=== PATIENT | female | born 1975 | race Caucasian/White ===

== ENCOUNTER 2025-08-17 03:50 | Emergency (ER) | payer MEDICAID, SELFPAY ==
[2025-08-17 03:50] VITALS: BMI 26.6
--- NOTE | 2025-08-17 03:58 | XR_ITS ---
EXAMINATION: AP chest single view TECHNIQUE: AP portable upright chest single view Date and time: August 17, 2025, 0415 hours INDICATIONS: Sepsis protocol FINDINGS: Mild prominence left ventricle Significant vascular congestion. No levi lobar pneumonia. Moderate osteopenia IMPRESSION: Prominent vascular congestion No lobar pneumonia
--- NOTE | 2025-08-17 03:58 | EKG_ITS ---
[facility] Test Date: 2025-08-17 Pat Name: DAMON LEYVA Department: Room: - Gender: Female Cheese Maker: : 1975 Requested By: Nelson Kohler Order Number: [id number] Reading MD: Nelson Kohler Measurements Intervals [place] Rate: 98 P: 69 AR: 116 QRS: 39 QRSD: 98 T: 45 QT: 333 QTc: 427 Interpretive Statements SINUS RHYTHM WITH SHORT AR INTERVAL No previous ECG available for comparison /store/S0/[id number]/ecg/[id number].pdf
[2025-08-17 03:59] VITALS: BP 178/94; PULSE 106; RESP 22; TEMP 38.1; O2SAT 100
[2025-08-17 04:05] VITALS: PULSE 89; RESP 18; RESP 96
[2025-08-17 04:10] LABS: Collection Type, Urine Clean Catch
--- NOTE | 2025-08-17 04:18 | EDNOTE_ITS ---
ED Female Urogenital RME/HPI General Chief complaint: Abdominal Pain Stated complaint: BILATERAL FLANK PAIN/FEVER Time Seen by Provider: 08/17/25 03:54 Arrival date/time: 08/17/25 03:50 RME / HPI RME / HPI Narrative: DR. HANSEN MAIN ED EVALUATION: Patient presenting with sudden onset fever, chills, vaguely described back pain x approximately 24 hours. Noticed malodorous urine, although denies urinary frequency, urgency, or dysuria. No vomiting or diarrhea. PMH: Unremakrable for DM and Asthma, Positive MRSA PSH: Non-contributory Allergies: Codeine Social: No tobacco, No alcohol, Prior Heroin abuse Related Data Home Medications ?Medication ?Instructions ?Recorded ?Confirmed methadone 10 mg/5 mL oral solution 5 mg PO Q6H 9 08/19/19 Allergies Allergy/AdvReac Type Severity Reaction Status Date / Time codeine Allergy Mild RED Verified 12/07/18 13:34 RASH,NAUSEA Review of Systems Review of Systems Systems Reviewed: All systems reviewed, normal except as documented Past Medical History Past Medical History PSYCHO/SOCIAL: Positive Recreational Drug Use OTHER HISTORY: Positive MRSA Social History SMOKING STATUS: Current some day smoker SUBSTANCE USE: former substance user (former IV heroin user) ED Exam Narrative Physical exam: GEN. APPEARANCE: The patient is alert awake oriented X-3 under no distress, lying down comfortably, notably febrile, tachycardic, and mildly hypertensive. Patient has good eye contact. Patient is cooperative. VITALS: All vitals were reviewed and the pulse ox is 100%, which is normal according to my interpretation HEENT: Normocephalic, atraumatic and nontender. Pupils are equal and reactive. Oral mucosa is moist. NECK: Supple, nontender, no meningismus, no JVD. There is no thyromegaly and no lymphadenopathy. CHEST: Nontender on palpation no deformity and no crepitus. CARDIOVASCULAR: Tachycardic, no murmur or gallop rub or extra beats. LUNGS: Clear to auscultation bilaterally with symmetrical chest rise. No laboring tachypnea or wheezing. No intercostal subcostal retraction. No rales and no rhonchi. ABDOMEN: Soft, flat, nontender to palpation, no guarding or rebound tenderness. There are no abnormal masses palpated. No pulsatile masses or bruits. Active and normal bowel sounds. EXTREMITIES: Normal inspection and palpation. No edema. No cyanosis. Patient is able to move all 4 extremities well SKIN: Warm and dry, no rashes noted. MUSCULOSKELETAL: No lumbar or midline bony tenderness. 1+ right CVA tenderness. No paraspinal muscle spasm or tenderness. NEURO: Cranial nerves II through XII grossly intact. There are no focal neurologic deficits noted. GCS is 15 PSYCHIATRIC: Patient is in normal mood and affect, cooperative. LYMPHATICS: No major lymphadenopathy noted. Course Quality Measures Current suspected stage: sepsis Possible source: genitourinary Blood cultures ordered: yes Antibiotic ordered: Yes Pertinent labs: 08/17/25 04:10 Lactic Acid 1.6 mMol/L (0.4-2.0) Procalcitonin 0.11 ng/ml (0.0-0.49) sepsis Orders Category Date Time Status Brick Tester STAT Care 08/17/25 03:58 Active Continuous Pulse Oximetry STAT Care 08/17/25 03:58 Completed EKG (ED ONLY) *Do not use* NOW Care 08/17/25 03:58 Completed Insert IV NOW Care 08/17/25 03:58 Active NPO STAT Care 08/17/25 03:58 Active Strict Intake and Output Routine Care 08/17/25 03:58 Ordered EKG (ED Only) Stat Exams 08/17/25 03:58 Draft XR chest 1V SEPSIS PROTOCOL Stat Exams 08/17/25 03:58 Taken B-Type Natriuretic Peptide Stat Lab 08/17/25 04:10 Completed Blood Culture (Lab) Stat Lab 08/17/25 04:10 Received CBC Stat Lab 08/17/25 04:10 Completed Comprehensive Metabolic Panel Stat Lab 08/17/25 04:10 Completed LDH (Lactate Dehydrogenase) Stat Lab 08/17/25 04:10 Completed Lactate (Lactic Acid) Stat Lab 08/17/25 04:10 Completed Lipase Stat Lab 08/17/25 04:10 Completed Magnesium Stat Lab 08/17/25 04:10 Completed Partial Thromboplastin Time Stat Lab 08/17/25 04:10 Completed Phosphorous Stat Lab 08/17/25 04:10 Completed Procalcitonin Stat Lab 08/17/25 04:10 Completed Prothrombin Time with INR Stat Lab 08/17/25 04:10 Completed Troponin I Stat Lab 08/17/25 04:10 Completed Urinalysis, C/S if Indicated Stat Lab 08/17/25 04:02 Completed Urine Culture Stat Lab 08/17/25 04:02 Received Acetaminophen Tab [Tylenol Tab] Med 08/17/25 04:28 Discontinued 1,000 mg PO X1 ONE Sodium Chloride 0.9% 1000 ml [Ns] 1,710 ml Med 08/17/25 03:58 Discontinued IV 1,710 mls/hr Sodium Chloride 0.9% 1000 ml [Ns] 2,000 ml Med 08/17/25 04:00 Active IV 999 mls/hr cefTRIAXone/D5w 1gm IV premix [Rocephin/D5w 1gm IV Med 08/17/25 04:19 Discontinued premix] 1 gm in 50 ml IV X1 Oxygen Delivery NOW RT 08/17/25 03:58 Active Vital Signs Vital signs: Vital Signs Temperature 100.5 F H 08/17/25 03:59 Pulse Rate 106 H 08/17/25 03:59 Respiratory Rate 22 H 08/17/25 03:59 Blood Pressure 178/94 H 08/17/25 03:59 Pulse Oximetry (%) 100 08/17/25 03:59 Oxygen Delivery Method Room Air 08/17/25 03:59 Urogenital - Female MDM Narrative MDM Narrative:: Scribe Attestation: Lavinia Roberson, am scribing for and in the presence of Dr. Wilson. Provider Notation: Although this document has been carefully reviewed, there may still be some phonetic and other typographical errors. These errors are purely grammatical due to imperfections in the software program and should not be construed in any way to compromise the substance of the patient's medical care during this visit. Patient presenting with sudden onset fever, chills, vaguely described back pain x approximately 24 hours. Noticed malodorous urine, although denies urinary frequency, urgency, or dysuria. Please see PE findings. Laboratory markers, including CBC, demonstrates WBC of 6.2 and H&H of 13.3/40.1, and platelet count of 197 with slight left shift without associated bandemia. Serum chemistries essentially unremarkable. UA demonstrates gross UTI. Patient notably febrile, tachycardic, and mildly hypertensive upon arrival. Patient placed on sepsis protocol and administered dual-ABX and IV hydration in addition to anti-pyretics with reduction in HR. On serial evaluation patient resting comfortably and considered stable for discharge, Suspect ascending UTI/Pyelonephritis. Will discharge on Ceftin and Promethazine. Patient may titrate up on methadone at home. Advised to force fluids, maintain adequate rest, and close F/U with PMD. Final diagnosis is pyelonephritis. Patient data External records reviewed:: [facility] previous records (No recent ED records available for review) Clinical information provided by:: patient Social determinants that could affect healthcare access:: substance use (Heroin) Patient has the following chronic illnesses:: Recreational Drug Use, MRSA How is presenting disease/condition affected by chronic disease/condition?: exacerbated by Evaluation data The following diagnostics were reviewed and interpreted by me:: lab results, radiology exam(s) and EKG tracing(s) (EKG at 0408 shows normal sinus rhythm at 98, normal axis, no ectopy, no signs of acute ischemia, per my interpretation.) Lab and/or radiology exams considered but not ordered:: None Interpretation Summary: RADIOLOGY Chest X-Ray: Pending official radiology report. Medications / Prescriptions Medications or Prescriptions considered but not ordered:: None Medication administrations:: Medication Administration History Sodium Chloride (Ns) 2,000 mls @ 999 mls/hr IV .Q2H1M ONE Stop: 08/17/25 06:00 Last Admin: 08/17/25 04:20 Dose: 999 mls/hr Documented By: MARIOLA Discontinued Medications Acetaminophen (Acetaminophen 325 Mg Tablet) 1,000 mg PO X1 ONE Stop: 08/17/25 04:29 Last Admin: 08/17/25 04:33 Dose: 1,000 mg Documented By: MARIOLA Sodium Chloride (Ns) 1,710 mls @ 1,710 mls/hr 30 ml/kg infuse over 60 min (1710 ml) IV .Q1H ONE Stop: 08/17/25 04:57 Last Admin: 08/17/25 04:01 Dose: Not Given Documented By: DANK Non-Admin Reason: Cancelled by Provider Ceftriaxone Sodium/Dextrose (Rocephin/D5w 1gm Iv Premix) 1 gm in 50 mls @ 100 mls/hr IV X1 ONE Stop: 08/17/25 04:48 Last Infusion: 08/17/25 05:11 Dose: Infused Documented By: Admin: 08/17/25 04:32 Dose: 100 mls/hr Documented By: MARIOLA See above if any Consultations Consultation(s) initiated? (list below): No Diagnosis Urogenital Female Differential Diagnosis: urinary tract infection, cystitis and other (Pyelonephritis, Renal calculi) Most likely diagnosis given after review of the tests above:: Pyelonephritis Admission Indicated Admission indicated?: not indicated Explain why admission is indicated or not indicated:: Patient does not meet admission criteria Admission Request Was there a request for admission?: No Disposition Plan Disposition Plan: Discharge Discharge Attestation Discharge Attestation: The patient and all family members were given an opportunity to ask questions and understood the discharge instructions. Discharge instructions specifically effects, indications for sooner follow up or return to the emergency department, and the expected course of current diagnosis. Patient condition: Stable Critical Care Time Critical Care Time Critical Care Time: No Discharge Plan Plan Patient Disposition: HOME (Self Care) Prescriptions/Referrals Prescriptions/Med Rec: No Action methadone 10 mg/5 mL Solution 5 mg PO Q6H Problem List Clinical Impression: Pyelonephritis Patient/Caregiver Discharge Instructions Print Language: Indonesian Stand Alone Forms: [facility] Award Info., Patient Portal Info Letter
[2025-08-17] MEDS: SODIUM CHLORIDE 0.9% 1000 ML 2,000 ML 999 ML IV (04:20)
[2025-08-17 04:22] LABS: Lactate (Lactic Acid) 1.6 mMol/L (0.4-2.0)
[2025-08-17 04:23] LABS: Basophils # (Auto) 0.0 Thou/mm3 (0.0-0.2); Basophils % (Auto) 0 % (0-2.5); Eosinophils # (Auto) 0.0 Thou/mm3 (0.0-0.5); Eosinophils % (Auto) 1 % (0-10); Hematocrit 40.1 % (36.0-46.0); Hemoglobin 13.3 g/dL (12.0-16.0); Immature Granulocytes Auto 0.03 Thou/mm3 (0.00-0.00); Lymphocytes # (Auto) 0.7 Thou/mm3 (1.0-4.8); Lymphocytes % (Auto) 12 % (10-50); Mean Corpuscular HGB Conc 33.2 g/dl (31.0-37.0); Mean Corpuscular Hemoglobin 28.1 pg (25.0-35.0); Mean Corpuscular Volume 85 fL (80-100); Monocytes # (Auto) 0.1 Thou/mm3 (0.0-0.8); Monocytes % (Auto) 2 % (0-12); Neutrophils # (Auto) 5.3 Thou/mm3 (1.8-7.7); Neutrophils % (Auto) 86 % (37-80); Nucleated Red Blood Cell # 0.00 Thou/mm3 (0.00-0.00); Nucleated Red Blood Cell % 0 /100 WBC (0); Platelet Count 197 Thou/mm3 (140-440); RDW Standard Deviation 39.8 fL (36.4-46.3); Red Blood Count 4.74 Miln/mm3 (4.00-5.20); White Blood Count 6.2 Thou/mm3 (3.6-11.0)
[2025-08-17] MEDS: cefTRIAXone/D5w 1gm IV premix 1 GM/50 ML BAG IV (04:32)
[2025-08-17 04:33] VITALS: TEMP 38.1
[2025-08-17] MEDS: ACETAMINOPHEN 325 MG TABLET 1000 MG PO (04:33)
[2025-08-17 04:34] LABS: Amorphous Crystals,Urine Present (Absent); Bacteria,Urine 4+; Bilirubin,Urine Negative (Negative); Blood,Urine 2+ (Negative); Clarity,Urine Turbid (Clear/Hazy); Color,Urine Yellow (Lt Yel-Yel); Glucose, Urine Negative (Negative); Ketones,Urine Negative (Negative); Leukocyte Esterase,Urine Positive (Negative); Nitrite,Urine Positive (Negative); PH,Urine 6.0 (5.0-7.0); Protein,Urine 1+ (Neg - Trace); RBC,Urine 12 /hpf (0-3); Specific Gravity,Urine 1.021 (1.001-1.035); Squamous Epithelial Cell,Urine 1 /hpf (0-5); Urobilinogen,Urine 4.0 mg/dL (0.0-1.0); WBC,Urine 25 /hpf (0-5)
[2025-08-17 04:35] LABS: Culture Indicated,Urine Yes
[2025-08-17 04:38] LABS: INR 1.0 (0.9-1.3); Partial Thromboplastin Time 30.4 Seconds (22.0-36.0); Prothrombin Time 10.6 Seconds (9.0-12.2)
[2025-08-17 04:49] LABS: Alanine Aminotransferase 61 U/L (10-49); Albumin, Serum 4.5 gm/dL (3.5-5.0); Albumin/Globulin Ratio 1.5 (1.2-2.2); Alkaline Phosphatase 124 U/L (46-116); Anion Gap 8 (7-16); Aspartate Amino Transferase 53 U/L (0-34); BUN/Creatinine Ratio 13 Ratio (12-20); Bilirubin,Total 1.2 mg/dL (0.3-1.2); Blood Urea Nitrogen 8 mg/dL (9-23); Calcium 8.9 mg/dL (8.3-10.6); Calcium (Corrected) 8.9 mg/dL (8.5-10.1); Carbon Dioxide 25.8 mMol/L (20.0-31.0); Chloride 102 mMol/L (98-107); Creatinine (Component) 0.6 mg/dL (0.6-1.3); Estimated Creatinine Clearance 109.5 mL/min (>60); Globulin 3.0 gm/dL (2.3-3.5); Glucose 117 mg/dL (74-106); LDH (Lactate Dehydrogenase) 168 U/L (120-246); Lipase 20 U/L (12-53); Magnesium 1.7 mg/dL (1.6-2.6); Osmolality,Calculated 271 (275-295); Phosphorous 4.0 mg/dL (2.4-5.1); Potassium 3.9 mMol/L (3.4-5.1); Procalcitonin 0.11 ng/ml (0.0-0.49); Sodium 136 mMol/L (136-145); Total Protein 7.5 gm/dL (5.7-8.2); Troponin I < 0.020 ng/mL (0.0-0.045); eGFR > 60 See Note
[2025-08-17 04:54] LABS: B-Type Natriuretic Peptide 50 pg/mL (0-100)
[2025-08-17 05:41] VITALS: TEMP 37
[2025-08-17 05:55] VITALS: BP 164/93; PULSE 65; RESP 18; O2SAT 98
--- NOTE | 2025-08-17 06:21 | PC.NURSE ---
PT LEFT BELONGS. ATTEMPTED TO CALL WITH NO ANSWER. BELONGS LABELED AND PLACED IN LOCKER 8
== END 2025-08-17 05:55 | disposition home or self-care (01) ==
LOC: SERX 06:35
PROVIDERS: Emergency Provider Emergency Medicine
DX: N12 Tubulo-interstitial nephritis, not specified as acute or chronic (principal); E11.9 Type 2 diabetes mellitus without complications; J45.909 Unspecified asthma, uncomplicated
CPT/HCPCS: 36415; 71045; 80053; 81001; 83605; 83615; 83690; 83735; 83880; 84100; 84145; 84484; 85025; 85610; 85730; 87040; 87077; 87086; 87186; 93005; 96361; 96365; 99284; J0696; J7030; A9270

== ENCOUNTER 2025-08-18 14:08 | Emergency (ER) | payer MEDICAID, SELFPAY ==
[2025-08-18 14:37] VITALS: BP 148/93; PULSE 100; RESP 18; TEMP 36.8; O2SAT 98; BMI 29.1
--- NOTE | 2025-08-18 14:50 | PD.EDADULT ---
ED General RME/HPI General Chief complaint: Fever Stated complaint: FEVER/PYELONEPHRITIS Time Seen by Provider: 08/18/25 14:31 Arrival date/time: 08/18/25 14:08 RME / HPI RME / HPI narrative: 50 year old female with history of IV drug use on Methadone, presents to the ED for evaluation of malaise today. States her symptoms include fevers, chills, body aches, headache, dysuria, diarrhea, and abdominal pain. States the abdominal pain began 1 week ago, located most to the right abdomen, and was evaluated here yesterday. Reportedly diagnosed with kidney infection and sent home with antibiotics. 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 Related Data Home Medications ?Medication ?Instructions ?Recorded ?Confirmed methadone 10 mg/5 mL oral solution 5 mg PO Q6H 08/19/19 08/19/19 Previous Rx's ?Medication ?Instructions ?Recorded cefuroxime axetil 500 mg tablet 500 mg PO BID 7 days #14 tabs 08/17/25 promethazine 12.5 mg tablet 12.5 mg PO TID PRN nausea and 08/17/25 vomiting #14 tabs Allergies Allergy/AdvReac Type Severity Reaction Status Date / Time codeine Allergy Mild RED Verified 08/18/25 14:12 RASH,NAUSEA Review of Systems Review of Systems Systems Reviewed: All systems reviewed, normal except as documented Past Medical History Past Medical History GASTROINTESTINAL: Positive Gastrointestinal Disorders (HEP C) PSYCHO/SOCIAL: Positive Recreational Drug Use OTHER HISTORY: Positive MRSA Social History SMOKING STATUS: Current every day smoker SUBSTANCE USE: former substance user (former IV heroin user) ED Exam Narrative Physical exam: Constitutional: Awake, alert, tearful, anxious, appears to be in pain HEENT: Normocephalic, atraumatic, extraocular movements intact. Neck: Supple CV: Regular rate and rhythm, no murmurs/rubs/gallops Lungs: Clear to auscultation BL, no respiratory distress. Abd: Soft, right upper quadrant tenderness, suprapubic tenderness, no rebound, no guarding, ND, no HSM noted to palpation Extremities: No deformities, no edema noted Neuro: AAOx3, CN 2-12 GIBL, no acute neuro deficit noted. Skin: Warm, dry, intact Course Course Course Narrative: 1730h: It appears the patient has eloped. The patient was here yesterday, diagnosed with pyelonephritis and discharged home with antibiotics. Quality Measures none Orders Category Date Time Status Ent Consultant STAT Care 08/18/25 15:14 Active Continuous Pulse Oximetry STAT Care 08/18/25 15:14 Active EKG (ED ONLY) *Do not use* NOW Care 08/18/25 15:14 Active Insert IV NOW Care 08/18/25 15:14 Active NPO STAT Care 08/18/25 15:14 Active EKG (ED Only) Stat Exams 08/18/25 15:14 Ordered Ketorolac Inj [Toradol Inj] Med 08/18/25 15:15 Discontinued 30 mg IVP X1 ONE Prochlorperazine Inj [Compazine Inj] Med 08/18/25 15:15 Discontinued 10 mg IV X1 ONE Ringers Lactated 1000 ml [Lactated Ringers] 1,000 ml Med 08/18/25 15:15 Discontinued IV 999 mls/hr Vital Signs Vital signs: Vital Signs Temperature 98.2 F 08/18/25 14:37 Pulse Rate 100 08/18/25 14:37 Respiratory Rate 18 08/18/25 14:37 Blood Pressure 148/93 H 08/18/25 14:37 Pulse Oximetry (%) 98 08/18/25 14:37 Oxygen Delivery Method Room Air 08/18/25 14:37 Pulse ox is 98% on room air which is adequate. Discharge Plan Plan Patient Disposition: Elopement Prescriptions/Referrals Prescriptions/Med Rec: No Action methadone 10 mg/5 mL Solution 5 mg PO Q6H cefuroxime axetil 500 mg tablet 500 mg PO BID 7 Days Qty: 14 0RF promethazine 12.5 mg tablet 12.5 mg PO TID PRN (Reason: nausea and vomiting) Qty: 14 0RF Problem List Clinical Impression: Pyelonephritis Patient/Caregiver Discharge Instructions Print Language: Nepali MDM Narrative MDM hospital course (for use when minimal MDM required): Shara Roberson am scribing for and in the presence of Dr. Rockwell. Clinical Information Provided by: patient Medical Records reviewed [facility] Meds/Rx considered, not ordered None Labs/Rad/Tests considered, not ordered None Chronic Illness/Social Conditions which may negatively complicate care or outcome(s)-explain: ETOH/drugs/substance abuse EKG EKG not done Labs Labs: see narrative above Imaging Imaging interpretation: none and see narrative above Medication Administration(s) Medication Administration History Discontinued Medications Lactated Ringer's (Lactated Ringers) 1,000 mls @ 999 mls/hr IV .Q1H1M ONE Stop: 08/18/25 16:15 Ketorolac Tromethamine (Ketorolac Inj 30 Mg/Ml Vial) 30 mg IVP X1 ONE Stop: 08/18/25 15:16 Prochlorperazine Edisylate (Prochlorperazine Inj 5 Mg/Ml Vial 2 Ml) 10 mg IV X1 ONE; Protocol Stop: 08/18/25 15:16 See above Diagnosis Diagnoses ruled out and/or further discussions: Pyelonephritis
--- NOTE | 2025-08-18 15:36 | PC.LAC ---
COULD NOT FIND PATIENT TO DO EKG. CHECKED LOBBY, OUTSIDE, AND FAST TRACK AREA.
--- NOTE | 2025-08-18 16:17 | PC.NURSE ---
1605 NA X1 1610 NA X2 1615 LAST CALL NOW ANSWER PT IDALMIS
== END 2025-08-18 16:15 | disposition left against medical advice (07) ==
PROVIDERS: Emergency Provider Family Medicine
DX: N12 Tubulo-interstitial nephritis, not specified as acute or chronic (principal); Z53.29 Procedure and treatment not carried out because of patient's decision for other reasons
CPT/HCPCS: 80053; 81001; 83605; 83690; 83735; 84100; 84145; 84484; 85025; 85610; 87040; 99281